=== PATIENT | male | born 2000 | race Two or more races ===

== ENCOUNTER 2021-10-12 19:44 | Emergency (ER) | payer OTHER ==
[~2021-10-12] VITALS: Ht 170.2 cm; Wt 66.2 kg
--- NOTE | 2021-10-12 20:16 | NUR ---
BIBROOMMATE. TO ER BED 4. AAOX4. NOT IN RESP DISTRESS. AMBULATORY. CAME IN FOR HEADACHE AND R SIDE FACE PAIN S/P SEIZURE AT 1000. PT FELL AND HIT HIS FACE. NOTED DISCOLORATION. PT REPORTS HX OF SZ. NOT CURRENTLY TAKING AN MEDS FOR THE PAST YEAR. PT DENIES ALCOHOL USE. SEIZURE PRECAUTION IN PLACE. AWAITING MD FOR EVAL.
[2021-10-12 21:03] LABS: BASOPHILS # (AUTO) 0.1 K/uL (0.0-0.2); BASOPHILS % (AUTO) 0.5 % (0.0-2.0); EOSINOPHILS % (AUTO) 0.2 % (0.0-6.0); HEMATOCRIT 46 % (39-51); LYMPHOCYTES # (AUTO) 1.5 K/uL (0.8-4.8); LYMPHOCYTES % (AUTO) 11.6 % (20.0-44.0); MEAN CORPUSCULAR HGB CONC 33 g/dl (31.0-36.0); MEAN CORPUSCULAR VOLUME 89 fL (80-96); MONOCYTES # (AUTO) 0.7 K/uL (0.1-1.30); MONOCYTES % (AUTO) 5.8 % (2.0-12.0); NEUTROPHILS # (AUTO) 10.4 K/uL (1.8-8.9); NEUTROPHILS % (AUTO) 81.9 % (43.0-81.0); PLATELET COUNT (AUTO) 198 K/uL (150-450); RED BLOOD CELL COUNT(AUTO) 5.17 MIL/uL (4.5-6.0); WHITE BLOOD COUNT (AUTO) 12.7 K/uL (4.3-11.0)
[2021-10-12 21:20] LABS: ALBUMIN 4.5 g/dL (3.4-5.0); BILIRUBIN,DIRECT 0.1 mg/dL (0.0-0.2); BILIRUBIN,TOTAL 0.5 mg/dL (0.2-1.0); POTASSIUM 3.7 mmol/L (3.5-5.1); TOTAL PROTEIN, SERUM 8.4 g/dL (6.4-8.2)
[2021-10-12] MEDS ORDERED: LEVE500T9 PO (21:34)
[2021-10-12 21:44] VITALS: BP 135/88
--- NOTE | 2021-10-12 21:44 | NUR ---
Patient discharged to home in stable condition. Written and verbal after care instructions given. Patient verbalizes understanding of instruction.
== END 2021-10-12 21:44 | disposition home or self-care (01) ==
LOC: ER 19:59
DX: S05.11XA Contusion of eyeball and orbital tissues, right eye, initial encounter (principal); S09.90XA Unspecified injury of head, initial encounter; R56.9 Unspecified convulsions; Z79.899 Other long term (current) drug therapy; X58.XXXA Exposure to other specified factors, initial encounter; Y93.89 Activity, other specified; Y92.89 Other specified places as the place of occurrence of the external cause; Y99.8 Other external cause status
CPT/HCPCS: 36415; 70450-TC; 70486-TC; 80048-TC; 80076-TC; 85025-TC; 85730-TC